=== PATIENT | female | born 1980 | race Caucasian/White ===

== ENCOUNTER 2024-07-25 02:01 | Inpatient (IN) | payer OTHER ==
[~2024-07-25] VITALS: Ht 162.6 cm; Wt 90.7 kg
[2024-07-25 02:58] LABS: BASOPHILS # (AUTO) 0.1 K/UL (0.0-0.2); BASOPHILS % (AUTO) 0.7 % (0.0-2.0); EOSINOPHILS # (AUTO) 0.1 K/uL (0.0-0.7); EOSINOPHILS % (AUTO) 0.9 % (0.0-7.0); HEMATOCRIT 29.9 % (31.2-41.9); HEMOGLOBIN 9.4 g/dL (10.9-14.3); LYMPHOCYTES # (AUTO) 2.9 K/uL (0.8-4.8); LYMPHOCYTES % (AUTO) 21.6 % (20.5-51.5); MEAN CORPUSCULAR HEMOGLOBIN 21.8 uug (24.7-32.8); MEAN CORPUSCULAR HGB CONC 31 g/dL (32.3-35.6); MEAN CORPUSCULAR VOLUME 69.5 fL (75.5-95.3); MONOCYTES # (AUTO) 1.5 K/uL (0.1-1.30); MONOCYTES % (AUTO) 11.1 % (0.0-11.0); NEUTROPHILS # (AUTO) 8.8 K/uL (1.8-8.9); NEUTROPHILS % (AUTO) 65.7 % (38.5-71.5); PLATELET COUNT (AUTO) 571 K/uL (179-408); RED CELL DISTRIBUTION WIDTH 18.7 % (12.3-17.7); WHITE BLOOD COUNT (AUTO) 13.5 K/uL (3.8-11.8)
[2024-07-25] MEDS ORDERED: HYDROMORPHONE 1 MG/1 ML DISP.SYRIN ONE ×3 (03:02→13:59)
[2024-07-25] MEDS ORDERED: ONDANSETRON 4 MG/2 ML VIAL ONE ×3 (03:02→13:59)
[2024-07-25] MEDS ORDERED: PANTOPRAZOLE SODIUM 40 MG VIAL ONE (03:03)
[2024-07-25] MEDS: ONDANSETRON 4 MG/2 ML VIAL IV ONE ×3 (03:05→14:01)
[2024-07-25] MEDS: PANTOPRAZOLE SODIUM IV 80 MG in IV DEXTROSE 5% 100 ML IV ONE (03:09)
[2024-07-25] MEDS: HYDROMORPHONE 1 MG/1 ML DISP.SYRIN IV ONE ×3 (03:09→14:01)
[2024-07-25] MEDS: IV NORMAL SALINE 1000 ML BAG IV ONE ×2 (03:09→08:02)
[2024-07-25 03:29] LABS: ALANINE AMINOTRANSFERASE 22 U/L (14-59); ALBUMIN 3.5 g/dL (3.4-5.0); ALKALINE PHOSPHATASE 122 U/L (50-136); ASPARTATE AMINOTRANSFERASE 10 U/L (15-37); BILIRUBIN,DIRECT 0.1 mg/dL (0.0-0.2); BILIRUBIN,TOTAL 0.4 mg/dL (0.2-1.0); CALCIUM 8.5 mg/dL (8.5-10.1); CARBON DIOXIDE 26 mmol/L (21-32); CHLORIDE 106 mmol/L (98-107); CREATININE 0.8 mg/dL (0.6-1.3); GLUCOSE 102 mg/dL (74-106); LIPASE 43 U/L (16-77); POTASSIUM 3.8 mmol/L (3.5-5.1); SODIUM SERUM 144 mmol/L (136-145); TOTAL PROTEIN, SERUM 6.7 g/dL (6.4-8.2); UREA NITROGEN, BLOOD 8 mg/dL (7-18)
[2024-07-25 03:36] LABS: DIFFERENTIAL COMMENT 1
[2024-07-25 04:06] LABS: *BILIRUBIN,URIN NEGATIVE (NEGATIVE); *BLOOD, URINE NEGATIVE (NEGATIVE); *CLARITY,URINE CLEAR (CLEAR); *COLOR,URINE YELLOW (YELLOW); *KETONES,URINE TRACE (NEGATIVE); *PROTEIN,URINE NEGATIVE (NEGATIVE); *UROBILINOGEN,URINE 0.2 E.U./dl (NORMAL); LEUKOCYTE ESTERASE ,URINE 1+ (NEGATIVE); NITRITE, URINE NEGATIVE (NEGATIVE); UGLUCOSE NEGATIVE (NEGATIVE)
[2024-07-25 04:10] LABS: BACTERIA,URINE FEW /HPF (NONE SEEN); CALCIUM OXALATE CRYSTALS,UR FEW /HPF (NONE SEEN); RBC,URINE 0-3 /HPF (0-3); SQUAMOUS EPITHELIAL CELL,UR FEW /HPF (NONE SEEN)
[2024-07-25 04:19] LABS: *OCCULT BLOOD STOOL NEGATIVE (NEGATIVE)
[2024-07-25 04:31] LABS: LYMPHOCYTES % (MANUAL) 16 % (20-40); MONOCYTES % (MANUAL) 14 % (2-10); NEUTROPHILS % (MANUAL) 70 % (42-75)
[2024-07-25 05:34] LABS: PREGNANCY TEST SERUM QUAN < 1 miul/L (0-6)
[2024-07-25] MEDS ORDERED: IV NORMAL SALINE 250 ML IV ONE (06:17)
[2024-07-25] MEDS ORDERED: SWABABLE VALVE TRANSFER SET EA MC ONE (06:17)
[2024-07-25] MEDS ORDERED: IOHEXOL 300MG/ML 100 ML INFUS..BTL ONE (06:17)
[2024-07-25] MEDS: KETOROLAC TROMETHAMINE 15 MG INJ IVP ONE (11:30)
[2024-07-25] MEDS ORDERED: KETOROLAC TROMETHAMINE 15 MG INJ ONE (12:59)
[2024-07-25] MEDS ORDERED: KETOROLAC TROMETHAMINE 30 MG INJ ONE (13:09)
[2024-07-25] MEDS: KETOROLAC TROMETHAMINE 30 MG INJ IVP ONE (13:13)
[2024-07-25] MEDS ORDERED: ACETAMINOPHEN 650 MG SUPP.RECT RC PRN (16:00)
[2024-07-25] MEDS ORDERED: ONDANSETRON 4 MG/2 ML VIAL IV PRN (16:00)
[2024-07-25 18:47] VITALS: BP 122/56; TEMP 98.6; O2SAT 96
[2024-07-25 19:54] VITALS: BP 142/55; TEMP 98.2; O2SAT 97
[2024-07-25] MEDS: PANTOPRAZOLE SODIUM 40 MG VIAL IV SCH (20:26)
[2024-07-25] MEDS: MORPHINE SULFATE 2 MG/1 ML DISP.SYRIN IV PRN (21:36)
[2024-07-26] MEDS: IV D5 1/2 NS 1000 ML 1,000 ML IV PRN (00:58)
[2024-07-26] MEDS ORDERED: NICOTINE 21 MG/24HR PATCH TD SCH ×2 (01:30→01:45)
[2024-07-26] MEDS: LORAZEPAM 2 MG/1 ML VIAL IM PRN (03:49)
[2024-07-26 06:00] VITALS: BP 128/65; TEMP 98.1; O2SAT 95
[2024-07-26 08:50] VITALS: BP 114/75; TEMP 98.5; O2SAT 94
[2024-07-26] MEDS ORDERED: PIPERACILLIN SODIUM/TAZOBACTAM 3.375 G in IV DEXTROSE 5% 50 ML IV SCH (09:30)
[2024-07-26] MEDS: MORPHINE SULFATE 2 MG/1 ML DISP.SYRIN IV PRN (10:01)
[2024-07-26] MEDS: PIPERACILLIN SODIUM/TAZOBACTAM 3.375 G in IV DEXTROSE 5% 100 ML IV SCH (11:15)
[2024-07-26 15:23] VITALS: BP 99/64; TEMP 98.3; O2SAT 94
[2024-07-26] MEDS ORDERED: LAMO100T17 PO (16:11)
[2024-07-26] MEDS ORDERED: TRAZ-257 PO (16:12)
[2024-07-26] MEDS ORDERED: HYDR-3895 PO (16:13)
[2024-07-26] MEDS ORDERED: PROP10TA10 PO (16:14)
== END 2024-07-26 18:30 | disposition left against medical advice (07) | DRG 241 ==
LOC: ER 02:17 → MEDSURG3 14:07
PROVIDERS: ADMIT Internal Medicine; ATTEND Internal Medicine
DX: K27.9 Peptic ulcer, site unspecified, unspecified as acute or chronic, without hemorrhage or perforation (principal); F29 Unspecified psychosis not due to a substance or known physiological condition; E66.9 Obesity, unspecified; F17.210 Nicotine dependence, cigarettes, uncomplicated; D50.9 Iron deficiency anemia, unspecified; F32.A Depression, unspecified; N39.0 Urinary tract infection, site not specified; Z91.199 Patient's noncompliance with other medical treatment and regimen due to unspecified reason; G89.29 Other chronic pain; Z97.5 Presence of (intrauterine) contraceptive device; Z98.84 Bariatric surgery status; M54.50 Low back pain, unspecified; Z68.34 Body mass index [BMI] 34.0-34.9, adult; R45.1 Restlessness and agitation; Z87.442 Personal history of urinary calculi; Z96.89 Presence of other specified functional implants
CPT/HCPCS: 36415; 70030-TC; 78445; 83690; 85025; A9537; G0378; J1171; J1885; J2060; J2270; J2405; J2470; J2543; J7040; J7042; Q9967

== ENCOUNTER 2024-11-29 23:43 | Emergency (ER) | payer OTHER ==
[~2024-11-29] VITALS: Ht 165.1 cm; Wt 90.7 kg
[~2024-11-29 23:43] MED LIST: HYDR-3895 PO; LAMO100T17 PO; PROP10TA10 PO; TRAZ-257 PO
[2024-11-30] MEDS ORDERED: PANT40TA2 (00:18)
[2024-11-30] MEDS ORDERED: SUCR1TAB31 (00:18)
[2024-11-30 00:41] LABS: BASOPHILS # (AUTO) 0.1 K/UL (0.0-0.2); BASOPHILS % (AUTO) 0.8 % (0.0-2.0); EOSINOPHILS # (AUTO) 0.1 K/uL (0.0-0.7); HEMATOCRIT 41.1 % (31.2-41.9); HEMOGLOBIN 13.7 g/dL (10.9-14.3); LYMPHOCYTES # (AUTO) 2.9 K/uL (0.8-4.8); LYMPHOCYTES % (AUTO) 27.9 % (20.5-51.5); MEAN CORPUSCULAR HEMOGLOBIN 28.5 uug (24.7-32.8); MEAN CORPUSCULAR HGB CONC 33 g/dL (32.3-35.6); MEAN CORPUSCULAR VOLUME 85.9 fL (75.5-95.3); MONOCYTES # (AUTO) 1.1 K/uL (0.1-1.30); MONOCYTES % (AUTO) 10.8 % (0.0-11.0); NEUTROPHILS # (AUTO) 6.1 K/uL (1.8-8.9); NEUTROPHILS % (AUTO) 59.5 % (38.5-71.5); PLATELET COUNT (AUTO) 331 K/uL (179-408); RED BLOOD CELL COUNT(AUTO) 4.79 MIL/uL (3.63-4.92); RED CELL DISTRIBUTION WIDTH 13.6 % (12.3-17.7); WHITE BLOOD COUNT (AUTO) 10.3 K/uL (3.8-11.8)
[2024-11-30 00:42] LABS: DIFFERENTIAL COMMENT 1
[2024-11-30 00:44] LABS: CALCIUM 10.1 mg/dL (8.5-10.1); CARBON DIOXIDE 28 mmol/L (21-32); CHLORIDE 102 mmol/L (98-107); CREATININE 0.7 mg/dL (0.6-1.3); GLUCOSE 106 mg/dL (74-106); POTASSIUM 4.4 mmol/L (3.5-5.1); SODIUM SERUM 138 mmol/L (136-145); UREA NITROGEN, BLOOD 10 mg/dL (7-18)
[2024-11-30] MEDS ORDERED: MAG HYDROX/AL HYDROX/SIMETH 30 ML LIQUID UDC ONE (00:44)
[2024-11-30] MEDS ORDERED: LIDOCAINE VISCUS 2% 15 ML UDC ONE (00:44)
[2024-11-30] MEDS ORDERED: HALOPERIDOL LACTATE 5 MG/1 ML VIAL ONE (00:45)
[2024-11-30] MEDS ORDERED: PANTOPRAZOLE SODIUM 40 MG VIAL ONE (00:45)
[2024-11-30 00:55] LABS: ALANINE AMINOTRANSFERASE 29 U/L (14-59); ALBUMIN 3.7 g/dL (3.4-5.0); ALKALINE PHOSPHATASE 130 U/L (50-136); ASPARTATE AMINOTRANSFERASE 17 U/L (15-37); BILIRUBIN,TOTAL 0.5 mg/dL (0.2-1.0); MAGNESIUM 2.1 mg/dL (1.8-2.4); TOTAL PROTEIN, SERUM 7.1 g/dL (6.4-8.2)
[2024-11-30 00:56] LABS: C-REACTIVE PROTEIN < 0.30 mg/dL (0.00-0.30)
[2024-11-30] MEDS: IV NORMAL SALINE 500 ML BAG IV ONE (01:07)
[2024-11-30] MEDS: MAG HYDROX/AL HYDROX/SIMETH 30 ML LIQUID UDC PO ONE (01:07)
[2024-11-30] MEDS: PANTOPRAZOLE SODIUM IV 40 MG in IV DEXTROSE 5% 100 ML IV ONE (01:07)
[2024-11-30] MEDS ORDERED: ONDA4TAB5 PO (01:07)
[2024-11-30] MEDS ORDERED: DICY10CA13 PO (01:07)
[2024-11-30] MEDS: LIDOCAINE VISCUS 2% 15 ML UDC MM ONE (01:07)
[2024-11-30] MEDS ORDERED: KETOROLAC TROMETHAMINE 15 MG INJ ONE ×2 (01:09→01:14)
[2024-11-30] MEDS: KETOROLAC TROMETHAMINE 15 MG INJ IVP ONE ×2 (01:13→01:17)
[2024-11-30] MEDS: HALOPERIDOL LACTATE 5 MG/1 ML VIAL IV ONE (01:17)
[2024-11-30 03:52] VITALS: BP 140/88; O2SAT 99
== END 2024-11-30 03:41 | disposition home or self-care (01) ==
LOC: ER 23:46
DX: R10.9 Unspecified abdominal pain (principal); Z88.7 Allergy status to serum and vaccine; Z87.19 Personal history of other diseases of the digestive system
CPT/HCPCS: 36415; 83605; 83735; 85025; 86140; A4606; A4663; J1630; J1885; J2470; J7040